=== PATIENT | female | born 1980 | race Two or more races ===

== ENCOUNTER → 2024-08-18 | Outpatient (CLI) | payer MEDICAID, SELFPAY ==
[2024-08-02 08:38] LABS: HCG Qualitative,Urine Negative
[2024-08-18 08:33] LABS: HCG Qualitative,Urine Negative
--- NOTE | 2024-08-18 13:00 | XR_ITS ---
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 Anterior, posterior whole body images are obtained. Images have been obtained including the lower extremities. Findings: Focus increased isotope accumulation right frontal bone and left frontal bone on the AP image Mild increased uptake anterior upper right rib probably the fourth rib IMPRESSION: Positive bone scan as above Recommend CT brain scan including bone density settings follow-up Recommend right rib series follow-up
== END | disposition home or self-care (01) ==
PROVIDERS: PCP Internal Medicine Hematology & Oncology; Referring Provider Internal Medicine Hematology & Oncology; Visit Provider Internal Medicine Hematology & Oncology
DX: R93.7 Abnormal findings on diagnostic imaging of other parts of musculoskeletal system (principal); C50.211 Malignant neoplasm of upper-inner quadrant of right female breast
CPT/HCPCS: 78306; 81025; A9503